=== PATIENT | male | born 1945 | race Two or more races ===

== ENCOUNTER 2022-05-23 09:43 | Emergency (ER) | payer OTHER ==
[~2022-05-23] VITALS: Ht 142.2 cm; Wt 92.1 kg
[~2022-05-23 09:43] MED LIST: AVALIDE 300-251 TAB PO; NEURONTIN300 MG PO; NORVASC10 MG PO; VYTORIN 10-40 M1 TAB PO
[2022-05-23] MEDS ORDERED: ZESTRIL40 M1 PO (09:48)
[2022-05-23] MEDS ORDERED: METFORMIN HCL500 M3 PO (09:49)
== END 2022-05-23 12:43 | disposition home or self-care (01) ==
LOC: ER 09:43
DX: B34.9 Viral infection, unspecified (principal); Z20.822 Contact with and (suspected) exposure to COVID-19